=== PATIENT | female | born 2000 | race Caucasian/White ===

== ENCOUNTER 2019-08-11 20:23 | Emergency (ER) | payer OTHER ==
[~2019-08-11] VITALS: Ht 160 cm; Wt 56.0 kg
--- NOTE | 2019-08-11 20:37 | PHYS DOC ---
Past History Past Medical History: Anxiety, Bipolar, Migraines Adult General Chief Complaint Chief Complaint: ".. I get bad migraines.. I ve already done Imitrex twice today.. and the propranolol didn't work either.. I got an apt. to see my Neurologist...".." I ve had them since age 9..." HPI HPI Patient is a 19 year old female who presents with above hx and complaints of a migraine headache. Patient states she's had migraine since age 9. This is a typical migraine for her except more exacerbated in usual. No history of travel. No history of specific ill contacts. No history immunosuppression. Has been following with a neurologist. Has a follow-up appointment first week of August. Patient has taken per panel on an Imitrex 2 today as part of her migraine regimen with minimal relief. Patient denies any trauma. Patient localizes her headache towards the base and neck and it travels over the top of scalp.. Patient states her triggers are emotional stress in weather changes. Patient states if she can get nausea meds and sedation that usually migraines stop.. Patient does have photophobia and sensitive to loud sounds. Review of Systems Review of Systems Constitutional: Denies fever or chills [] Eyes: Denies change in visual acuity, redness, or eye pain []complaints of photophobia HENT: Denies nasal congestion or sore throat [] Respiratory: Denies cough or shortness of breath [] Cardiovascular: No additional information not addressed in HPI [] GI: Denies abdominal pain, , vomiting, bloody stools or diarrhea []complaints of nausea : Denies dysuria or hematuria [] Musculoskeletal: Denies back pain or joint pain [] Integument: Denies rash or skin lesions [] Neurologic: Complaints of headache. Denies, focal weakness or sensory changes [] Endocrine: Denies polyuria or polydipsia [] All other systems were reviewed and found to be within normal limits, except as documented in this note. Family History Family History Noncontributory Current Medications Current Medications See nursing for home meds Allergies Allergies Allergy to [place] Physical Exam Physical Exam Constitutional: Well developed, well nourished, moderate acute distress, non- toxic appearance. [] HENT: Normocephalic, atraumatic, bilateral external ears normal, oropharynx moist, no oral exudates, nose normal. [] Eyes: PERRLA, EOMI, conjunctiva normal, no discharge. [] Fundus exam benign by limited exam. Does have photophobia and consensual photophobia. No limbus injection. Scalp is tender to palpation. Neck: Normal range of motion, no tenderness, supple, no stridor. [] Cardiovascular:Heart rate regular rhythm, no murmur [] Lungs & Thorax: Bilateral breath sounds equal apex on auscultation [] Abdomen: Bowel sounds normal, soft, no tenderness, no masses, no pulsatile masses. [] Skin: Warm, dry, no erythema, no rash. [] Back: No tenderness, no CVA tenderness. [] Extremities: No tenderness, no cyanosis, no clubbing, ROM intact, no edema. [] Neurologic: Alert and oriented X 3, normal motor function, normal sensory function, no focal deficits noted. []DTRs +2 patella and brachial. Right-hand dominant. Online Journalist equal. No drift. Patient is ambulatory without problems. Psychologic: Affect anxious, judgement normal, mood normal. [] EKG EKG [] Radiology/Procedures Radiology/Procedures [][place] [address] IMAGING REPORT Signed PATIENT: ILIANA HOWELL ACCOUNT: [id number] : 2000 LOCATION: ER AGE: 19 SEX: F EXAM STATUS: REG ER ORD. PHYSICIAN: ANYA RODRIGUEZ MD REASON: HEADACHE PROCEDURE: CT HEAD WO CONTRAST INDICATION: Headache COMPARISON: None. TECHNIQUE: Axial CT images obtained through the head without intravenous contrast. One or more of the following individualized dose reduction techniques were utilized for this examination: 1. Automated exposure control; 2. Adjustment of the mA and/or kV according to patient size; 3. Use of iterative reconstruction technique. FINDINGS: No intracranial hemorrhage. No midline shift. Basal cisterns patent. Ventricles and sulci are unremarkable. No acute osseous abnormality. Orbits and paranasal sinuses unremarkable. IMPRESSION: * No acute intracranial hemorrhage. Electronically signed by: Iam Simons MD (08/11/2019 11:06 PM) [id number] DICTATED AND SIGNED BY: IAM SIMONS MD DATE: 08/11/19 2300 CC: ANYA RODRIGUEZ MD; PCP,UNKNOWN ~ Course & Med Decision Making Course & Med Decision Making Pertinent Labs and Imaging studies reviewed. (See chart for details) continue current migraine meds as previous directed. Take Zofran 8 mg up 4 times a day for nausea. For marked discomfort may take Vicoprofen up 4 times a day. Patient to keep follow-up with neurology. Patient take [id number] Tylenol and ibuprofen as needed. Must keep follow-up with neurology. Return if any concerns. Spinal tap offered to patient, patient declines spinal tap at this time. Exhibits [employer] capacity. Requesting discharge. [] Dragon Disclaimer Dragon Disclaimer This electronic medical record was generated, in whole or in part, using a voice recognition dictation system. Departure Departure: Disposition: 01 HOME/RESIDENCE PRIOR TO ADM Condition: STABLE Dragon Disclaimer This chart was dictated in whole or in part using Voice Recognition software in a busy, high-work load, and often noisy Emergency Department environment. It ma y contain unintended and wholly unrecognized errors or omissions. ANYA RODRIGUEZ MD Aug 11, 2019 20:36
[2019-08-11 21:37] LABS: BARBITURATES NEG (NEG); BENZODIAZEPINES NEG (NEG); CANNABINOIDS NEG (NEG); COCAINE NEG (NEG); METHADONE NEG (NEG); OPIATES NEG (NEG); PHENCYCLIDINE NEG (NEG)
[2019-08-11 21:40] LABS: AMPHETAMINE/METHAMPHETAMINE NEG (NEG)
[2019-08-11 21:44] LABS: BASO # 0.1 x10^3/uL (0.0-0.2); BASO % 1 % (0-3); EOS # 0.1 x10^3/uL (0.0-0.7); EOS % 2 % (0-3); HEMATOCRIT 41.6 % (36.0-47.0); HEMOGLOBIN 13.7 g/dL (12.0-15.5); LYMPH # 2.2 x10^3/uL (1.0-4.8); LYMPH % 39 % (24-48); MEAN CORPUSCULAR HEMOGLOBIN 30 pg (25-35); MEAN CORPUSCULAR HGB CONC 33 g/dL (31-37); MEAN CORPUSCULAR VOLUME 90 fL (79-100); MONO # 0.5 x10^3/uL (0.0-1.1); MONO % 9 % (0-9); NEUT # 2.7 x10^3uL (1.8-7.7); NEUT % 49 % (31-73); PLATELET COUNT 324 x10^3/uL (140-400); RED BLOOD COUNT 4.64 x10^6/uL (3.50-5.40); RED CELL DISTRIBUTION WIDTH 12.4 % (11.5-14.5); WHITE BLOOD COUNT 5.6 x10^3/uL (4.0-11.0)
[2019-08-11 21:46] LABS: ALBUMIN 3.6 g/dL (3.4-5.0); CALCIUM 9.2 mg/dL (8.5-10.1); CREATININE 0.7 mg/dL (0.6-1.0); DIRECT BILIRUBIN 0.1 mg/dL (0.0-0.2); GFR 106.7; MAGNESIUM 1.6 mg/dL (1.8-2.4); TOTAL BILIRUBIN 0.2 mg/dL (0.2-1.0); TOTAL PROTEIN 7.6 g/dL (6.4-8.2)
[2019-08-11] MEDS ORDERED: IV RINGERS SOLUTION,LACTATED 1,000 ML IV SCH (22:00)
[2019-08-11] MEDS ORDERED: PROCHLORPERAZINE 10 MG/2 ML VIAL. IV ONE (22:00)
[2019-08-11] MEDS ORDERED: oxyCODONE/APAP 5/325 1 TAB TABLET PO ONE (22:00)
[2019-08-11] MEDS ORDERED: diphenhydrAMINE 50 MG/ML VIAL IV ONE (22:00)
[2019-08-11 22:03] LABS: BACTERIA,URINE MOD /HPF (0-FEW); BILIRUBIN,URINE NEG (NEG); CLARITY,URINE CLEAR; COLOR,URINE YELLOW; GLUCOSE,URINE NEG (NEG); NITRITE,URINE NEG (NEG); SQUAMOUS EPITHELIAL CELL,UR FEW /LPF; UROBILINOGEN,URINE 0.2 mg/dL (0.2 mg/dL)
--- NOTE | 2019-08-11 23:09 | RAD ---
INDICATION: Headache COMPARISON: None. TECHNIQUE: Axial CT images obtained through the head without intravenous contrast. One or more of the following individualized dose reduction techniques were utilized for this examination: 1. Automated exposure control; 2. Adjustment of the mA and/or kV according to patient size; 3. Use of iterative reconstruction technique. FINDINGS: No intracranial hemorrhage. No midline shift. Basal cisterns patent. Ventricles and sulci are unremarkable. No acute osseous abnormality. Orbits and paranasal sinuses unremarkable. IMPRESSION: * No acute intracranial hemorrhage. Electronically signed by: Iam Simons MD (08/11/2019 11:06 PM) [facility]
[2019-08-12] MEDS ORDERED: MAGNESIUM HYDROXIDE 2,400 MG/30 ML ORAL.SUSP. PO ONE (01:00)
[2019-08-12] MEDS ORDERED: KETOROLAC 30 MG/ML VIAL. IVP ONE (01:00)
[2019-08-12 01:40] VITALS: BP 104/60
--- NOTE | 2019-08-12 01:51 | EKG ---
[address] [address] Test Date: 2019-08-11 Test Time: 21:45:22 Pat Name: ILIANA HOWELL Department: Room: Gender: F Area Relief Pilot: [facility] : 2000 Requested By: ANYA RODRIGUEZ Order Number: [id number] Reading MD: Franck Parks Measurements Intervals [place] Rate: 83 P: RI: QRS: -136 QRSD: 82 T: -101 QT: 346 QTc: 412 Interpretive Statements SINUS RHYTHM LEAD REVERSAL ST & T ABNORMALITY, CONSIDER INFERIOR ISCHEMIA OR LEFT VENTRICULAR STRAIN ABNORMAL ECG Electronically Signed On 08-12-2019 13:55:22 SEASONAL DRIVER by Franck Parks
== END 2019-08-12 01:40 | disposition home or self-care (01) ==
LOC: ER 20:23
DX: G43.909 Migraine, unspecified, not intractable, without status migrainosus (principal); E83.42 Hypomagnesemia; N39.0 Urinary tract infection, site not specified; F41.9 Anxiety disorder, unspecified; F31.9 Bipolar disorder, unspecified
CPT/HCPCS: 36415; 70450; 80048; 80076; 80307; 81001; 81025; 82550; 83735; 84443; 84484; 85025; 85610; 85651; 85730; 87086; 93005; 96374; 96375; 99285; J0780; J1200; J1885; J2060; J7120

== ENCOUNTER 2019-08-23 21:19 | Emergency (ER) | payer OTHER ==
[~2019-08-23] VITALS: Ht 160 cm; Wt 70.8 kg
--- NOTE | 2019-08-23 21:27 | PHYS DOC ---
Past History Past Medical History: Anxiety, Bipolar, Migraines Past Surgical History: Tonsillectomy Alcohol Use: Occasionally Drug Use: None Adult General Chief Complaint Chief Complaint: ".. I am having one my headaches.. I was stupid and did not bring my Imitrex with me.. I ve had them since age 9.. I just need some meds.. like imitrex... .. I don't need any big work up... I have a neurologist and have follow up with him..." [facility] HPI Patient is a 19 year old female who presents with above hx and complaints of migraine headache. Patient has had migraine headaches since age 9. Has had previous CTs that were negative. Patient doesn't follow-up primary care and her allergy. Patient visiting her boyfriend locally. No history immunosuppression. No history of trauma. No history of specific ill contacts. No history of travel outside side in [facility]. No history of fever or chills. Patient states her current headache symptoms are similar to prior migraines presentations. Some nausea and photophobia which is typical for onset of her migraines. Patient normally takes Imitrex for relief of her migraines. Sometimes adds Flexeril to treatment regimen. Review of Systems Review of Systems Constitutional: Denies fever or chills [] Eyes: Denies change in visual acuity, redness, or eye pain [] HENT: Denies nasal congestion or sore throat [] Respiratory: Denies cough or shortness of breath [] Cardiovascular: No additional information not addressed in [facility] [] GI: Denies abdominal pain, nausea, vomiting, bloody stools or diarrhea [] : Denies dysuria or hematuria [] Musculoskeletal: Denies back pain or joint pain [] Integument: Denies rash or skin lesions [] Neurologic: Patient complaints of a migraine headache,. Denies focal weakness or sensory changes [] Endocrine: Denies polyuria or polydipsia [] All other systems were reviewed and found to be within normal limits, except as documented in this note. Family History Family History Noncontributory Current Medications Current Medications See nursing for home meds Allergies Allergies Allergies Coded Allergies Type Severity Reaction Last Updated Verified cefaclor Allergy Severe Swelling 08/11/19 Yes Physical Exam Physical Exam Constitutional: Well developed, well nourished, mild distress, non-toxic appearance. [] HENT: Normocephalic, atraumatic, bilateral external ears normal, oropharynx moist, no oral exudates, nose normal. [] Eyes: PERRLA, EOMI, conjunctiva normal, no discharge. Fundus benign Neck: Normal range of motion, no tenderness, supple, no stridor. [] Cardiovascular:Heart rate regular rhythm, no murmur [] Lungs & Thorax: Bilateral breath sounds equal at apex auscultation [] Abdomen: Bowel sounds normal, soft, no tenderness, no masses, no pulsatile masses. [] Skin: Warm, dry, no erythema, no rash. [] Back: No tenderness, no CVA tenderness. [] Extremities: No tenderness, no cyanosis, no clubbing, ROM intact, no edema. [] Neurologic: Alert and oriented X 3, normal motor function, normal sensory function, no focal deficits noted. []DTRs +2 patella and brachial. Meeting Coordinator equal. Right-hand dominant. No drift. Ambulatory without problems. Psychologic: Affect normal, judgement normal, mood normal. [] Current Patient Data Lab Results Patient declines labs EKG EKG [] Radiology/Procedures Radiology/Procedures Patient declines CT[] Course & Med Decision Making Course & Med Decision Making Pertinent Labs and Imaging studies reviewed. (See chart for details) Take your migraine meds as directed. Follow up with primary and neurology. Return if any concerns. Patient to take Imitrex 100 mg at the beginning of he adache. Never take more than 100 mg of Imitrex in 24-hour's. Patient take Zofran 8 mg up 4 times a day for nausea and vomiting. Take Tylenol and ibuprofen for pain. For marked pain may take Vicoprofen. Must follow-up with primary care and neurology. Patient return if any concerns. Patient have a repeat UA on follow-up with primary care Impression: 1. Migraine Headache Dragon Disclaimer Dragon Disclaimer This electronic medical record was generated, in whole or in part, using a voice recognition dictation system. Departure Departure: Disposition: 01 HOME/RESIDENCE PRIOR TO ADM Condition: STABLE Referrals: PCP,NO (PCP) Scripts Ondansetron Hcl (ZOFRAN) 8 Mg Tablet 8 MG PO QIDPRN PRN for NAUSEA/VOMITING, #30 BOTTLE Prov: ANYA RODRIGUEZ MD 08/23/19 Sumatriptan Succinate (IMITREX) 100 Mg Tablet 100 MG PO 1X PRN for HEADACHE, #10 TAB Prov: ANYA RODRIGUEZ MD 08/23/19 Hydrocodone/Ibuprofen (HYDROCODONE-IBUPROFEN 7.5-200 ) 1 Each Tablet 1 TAB PO PRN Q6HRS PRN for PAIN, #30 TAB 0 Refills Prov: ANYA RODRIGUEZ MD 08/23/19 Dragon Disclaimer This chart was dictated in whole or in part using Voice Recognition software in a busy, high-work load, and often noisy Emergency Department environment. It may contain unintended and wholly unrecognized errors or omissions. ANYA RODRIGUEZ MD Aug 23, 2019 21:27
[2019-08-23 21:33] VITALS: BP 126/89
[2019-08-23 22:12] LABS: BARBITURATES NEG (NEG); BENZODIAZEPINES NEG (NEG); CANNABINOIDS NEG (NEG); COCAINE NEG (NEG); METHADONE NEG (NEG); OPIATES NEG (NEG); PHENCYCLIDINE NEG (NEG)
[2019-08-23 22:18] LABS: BILIRUBIN,URINE NEG (NEG); CLARITY,URINE CLOUDY; COLOR,URINE YELLOW; GLUCOSE,URINE NEG (NEG)
[2019-08-23 22:19] LABS: BACTERIA,URINE FEW /HPF (0-FEW); NITRITE,URINE NEG (NEG); UROBILINOGEN,URINE 0.2 mg/dL (0.2 mg/dL)
[2019-08-23 22:20] LABS: SQUAMOUS EPITHELIAL CELL,UR MANY /LPF
[2019-08-23] MEDS ORDERED: ONDA8TAB9 PO (22:22)
[2019-08-23] MEDS ORDERED: SUMA100T3 PO (22:22)
[2019-08-23] MEDS ORDERED: HYDR-1179 PO (22:22)
[2019-08-23 22:23] LABS: AMPHETAMINE/METHAMPHETAMINE NEG (NEG)
[2019-08-23] MEDS ORDERED: IV RINGERS SOLUTION,LACTATED 1,000 ML IV ONE (22:30)
[2019-08-23] MEDS ORDERED: diphenhydrAMINE 50 MG/ML VIAL IVP ONE (22:30)
[2019-08-23] MEDS ORDERED: PROCHLORPERAZINE 10 MG/2 ML VIAL. IV ONE (22:30)
[2019-08-23] MEDS ORDERED: SUMAtriptan SUCC 6 MG/0.5 ML VIAL SQ ONE (22:30)
[2019-08-23] MEDS ORDERED: KETOROLAC 30 MG/ML VIAL. IVP ONE (22:30)
== END 2019-08-23 23:45 | disposition home or self-care (01) ==
LOC: ER 21:19
DX: G43.909 Migraine, unspecified, not intractable, without status migrainosus (principal); Z88.1 Allergy status to other antibiotic agents
CPT/HCPCS: 36415; 80307; 81001; 81025; 87086; 96372; 96374; 96375; 99284; J0780; J1200; J1885; J3030; J7120